=== PATIENT | male | born 1970 | race African-American/Black ===

== ENCOUNTER 2022-01-02 18:45 | Emergency (ER) | payer OTHER, SELFPAY ==
[2022-01-02] MEDS ORDERED: Acetaminophen 500 MG TAB ONE (19:01)
== END 2022-01-02 20:33 | disposition home or self-care (01) ==
LOC: NAV ERS 18:45
DX: J20.9 Acute bronchitis, unspecified (principal); Z20.822 Contact with and (suspected) exposure to COVID-19
CPT/HCPCS: 71045; 87804; U0003; U0005

== ENCOUNTER 2024-04-06 19:12 | Emergency (ER) | payer OTHER, SELFPAY ==
[2024-04-06] MEDS ORDERED: Boostrix 0.5 ML (Tdap) VIAL (>/=7 yrs of age) ONE (19:27)
[2024-04-06] MEDS ORDERED: Lidocaine 1% (PF) 30 ML VIAL ONE (19:41)
[2024-04-06] MEDS ORDERED: Sulfameth/Trimethoprim DS 800-160mg TAB ONE (20:21)
== END 2024-04-06 20:35 | disposition home or self-care (01) ==
LOC: NAV ERS 19:12
DX: S60.451A Superficial foreign body of left index finger, initial encounter (principal); Z23 Encounter for immunization; W45.8XXA Other foreign body or object entering through skin, initial encounter
CPT/HCPCS: 90471; 90715; J2001

== ENCOUNTER 2025-06-08 17:51 | Emergency (ER) | payer OTHER ==
[2025-06-08] MEDS ORDERED: Ketorolac Tromethamine 30 MG (1 mL) VIAL ONE (18:23)
[2025-06-08] MEDS ORDERED: Aspirin Chewable 81 MG TAB ONE (18:23)
[2025-06-08 18:29] LABS: #Basophils 0.1 thou/uL (0.0-0.2); #Eosinophils 0.1 thou/uL (0.0-0.7); #Lymphocytes 2.3 thou/uL (1.20-3.40); #Monocytes 0.4 thou/uL (0.11-0.59); #Neutrophils 4.5 thou/uL (1.40-6.50); %Basophils 1.4 % (0.0-1.0); %Eosinophils 0.7 % (0.0-10.0); %Lymphocytes 31.7 % (21.0-51.0); %Monocytes 4.9 % (0.0-10.0); %Neutrophils 61.2 % (42.0-75.0); Hematocrit 46.0 % (42.0-52.0); Hemoglobin 15.0 g/dL (14.0-18.0); Mean Corpuscular Hemoglobin 27.6 pg (27.0-31.0); Mean Corpuscular Volume 84.7 fl (78.0-98.0); Platelet Count 290 10x3/uL (130-400); Red Blood Cell (RBC) Count 5.43 mill/uL (4.70-6.10); White Blood Cell (WBC) Count 7.3 10x3/uL (4.8-10.8)
[2025-06-08 18:33] LABS: Glucose, Urine (Dipstick) Negative (Negative); Leukocyte Negative (Negative); Protein, Urine (Dipstick) Negative (Neg-Trace); Specific Gravity, Urine Less/Equal 1.005 (1.005-1.030)
[2025-06-08 18:38] LABS: CAUTI Indications for Culture Alt mental st,lethar; WBC/HPF 0-3 HPF (0-3)
[2025-06-08 18:39] LABS: Urine Culture Reflex No No
[2025-06-08 18:51] LABS: ALT (SGPT) 32 U/L (Less than 45); AST (SGOT) 28 U/L (11-34); Albumin 4.2 g/dL (3.1-4.5); Alkaline Phosphatase 50 U/L (40-110); Anion Gap 15 mmol/L (10-20); BUN (Urea Nitrogen) 12 mg/dL (8.4-25.7); Bilirubin, Total 0.5 mg/dL (0.3-1.2); CK (CPK) 381 U/L (30-200); Calc. Creatinine Clearance 0 mL/min (70-130); Calcium 9.1 mg/dL (7.8-10.44); Carbon Dioxide 23 mmol/L (22-29); Chloride 108 mmol/L (98-107); Globulin 3.1 g/dL (2.4-3.5); Glucose 134 mg/dL (70-105); Potassium 3.7 mmol/L (3.5-5.1); Sodium 142 mmol/L (136-145)
[2025-06-08 18:52] LABS: Troponin I Less than 0.010 ng/mL (< 0.028)
== END 2025-06-08 20:00 | disposition home or self-care (01) ==
LOC: NAV ERS 17:51
DX: T67.5XXA Heat exhaustion, unspecified, initial encounter (principal); E86.0 Dehydration; I87.2 Venous insufficiency (chronic) (peripheral); G44.209 Tension-type headache, unspecified, not intractable; X30.XXXA Exposure to excessive natural heat, initial encounter
CPT/HCPCS: 71046; 80053; 81001; 82550; 83880; 84443; 84484; 85025; 93005; 96361; 96374; J1885; J7030